=== PATIENT | female | born 1960 | race Caucasian/White ===

== ENCOUNTER 2019-10-24 09:32 | Emergency (ER) | payer OTHER ==
[~2019-10-24] VITALS: Ht 165.1 cm; Wt 99.8 kg
[2019-10-24] MEDS ORDERED: SAVELLA50 MG PO (09:54)
[2019-10-24] MEDS ORDERED: TOPROL XL25 M1 PO (09:54)
[2019-10-24] MEDS ORDERED: PEPCID AC20 MG PO (15:53)
[2019-10-24] MEDS ORDERED: LEVSIN/SL0.125 MG SL (15:53)
== END 2019-10-24 16:16 ==
LOC: ER 09:32
DX: K29.60 Other gastritis without bleeding (principal); R10.11 Right upper quadrant pain; R10.31 Right lower quadrant pain